=== PATIENT | male | born 1955 | race Caucasian/White ===

== ENCOUNTER → 2018-11-04 | Outpatient (CLI) | payer MEDICARE, MEDICAID, SELFPAY ==
--- NOTE | 2018-11-04 17:01 | CT_ITS ---
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 A radiation dose optimization technique was used for this scan. IV Contrast dosage and agent: 100ML Isovue 370 Oral contrast: Oral contrast was administered. COMPARISON: No prior imaging of the abdomen or pelvis is available for comparison. FINDINGS: LYMPH NODES, MESENTERY: 3.0 x 3.5 x 3.4 cm TRV X APX craniocaudad stellate soft tissue density mass in the right posterior mid abdominal mesentery, just inferior to the transverse duodenum and pancreatic head, encasing the proximal right ureter, difficult to separate from the inferior wall of the duodenum, and inseparable from the anterior right wall of the IVC, with adjacent cicatrization and subcentimeter adjacent nodules. No other enlarged mesenteric or retroperitoneal lymph nodes. LOWER CHEST: No acute or concerning findings lung bases. Mild emphysema. Calcified granulomas left lung base. LIVER: 4.3 x 4.2 x 4.4 cm TRV X APX craniocaudad mass in the inferior, posterior tip of the right lobe of the liver, slightly hypodense to hepatic parenchyma with a more focal hypodense region centrally and anteriorly which measures 1.9 cm diameter. No other suspicious hepatic lesions are evident. GALLBLADDER AND BILIARY TREE: Status post cholecystectomy. No intra- or extrahepatic biliary ductal dilation. KIDNEYS AND URETERS: Moderate right hydronephrosis. Mild right renal cortical thinning. Right ureteral stent in place. Proximal right ureter encased by the mesenteric mass. 6 mm nonobstructing stone posterior calyx lower pole left kidney. 1 cm diameter hyperdense lesion off the lower pole of the left kidney, mildly increases in density after contrast administration. Left ureter are unremarkable. ADRENAL GLANDS: Non-enlarged. SPLEEN: Normal size, no mass. Incidental calcified granuloma. PANCREAS: No pancreatic inflammation or mass. BOWEL: Appendix not identified; no evidence of apendicitis.. No obstruction or inflammation of the bowel. Probable duodenal wall invasion by the mesenteric mass. PERITONEUM: No ascites or free air. No other fluid collection. VESSELS: No abdominal aortic aneurysm. The mesenteric tumor may partially invade the right anterior aspect of the infrarenal IVC. URINARY BLADDER: Unremarkable. REPRODUCTIVE ORGANS: No pelvic masses.Prostate normal size. ABDOMINAL WALL: No concerning findings. BONES: No acute osseous abnormality. CT/CT Abd/Pelvis W/WO Contrast IMPRESSION: Mesenteric mass 3.5 cm in greatest dimension, encasing the proximal right ureter and probably invading the posterior wall of the transverse duodenum and right anterior wall of the infrarenal IVC. Compatible with neuroendocrine tumor. Small likely metastatic nodules in the immediately adjacent mesentery. 4.4 cm in greatest dimension mass in the right lobe of the liver suspicious for metastases. No other metastatic disease is evident. Moderate right hydronephrosis but with ureteral stent in place. Comparison with priors would be helpful. Individualized dose optimization techniques were used for this CT. at 0954 Reported and signed by: Skyler Israel MD Electronically Signed: Skyler Israel, at 22:43 EDT Tel , Service support ,
== END | disposition home or self-care (01) ==
PROVIDERS: Family Provider Internal Medicine; PCP Internal Medicine
DX: C7A.8 Other malignant neuroendocrine tumors (principal)
CPT/HCPCS: 74178; Q9967

== ENCOUNTER → 2019-03-11 | Outpatient (CLI) | payer MEDICARE, SELFPAY ==
--- NOTE | 2019-03-11 08:02 | CT_ITS ---
STUDY: CT ABDOMEN AND PELVIS WITH AND WITHOUT CONTRAST REASON FOR EXAM: Male, 63 years old. Restaging of colon cancer. History of colon cancer and resection with chemotherapy and radiation. Right ureteral stent. RADIATION DOSAGE (If Supplied By Facility): CTDIvol = ( 27.32 ) mGy, DLP = ( 3400.71 ) mGycm TECHNIQUE: Transaxial images were obtained from the dome of the diaphragm to the symphysis pubis with oral contrast. IV/Oral Isovue 300 100ML was administered. Sagittal and coronal images were reconstructed. Individualized dose optimization techniques were used for this CT. COMPARISON: Comparison is made with prior study dated November 04, 2018. FINDINGS: Stable calcified granuloma in the posterior medial segment of the left lower lobe. Emphysematous changes seen at the lung bases. The visualized portions of the heart are within normal limits. There is a 1.5 cm well-defined hypodensity in the right lobe of the liver adjacent to the gallbladder fossa. A metastatic deposit should be ruled out. This has decreased in size as compared to prior study. There are surgical clips in the gallbladder fossa consistent with a prior cholecystectomy. Normal spleen. Normal pancreas. Normal bilateral adrenal glands. A right-sided double-J stent catheter is seen. 4.5 mm calculus in the posterior midpole calyx of the left kidney. Normal visualized stomach. Normal small intestine. The patient is status post right hemicolectomy. The appendix is visualized and appears normal. There is diffuse atherosclerotic calcification of the abdominal aorta, without a demonstrated aneurysm. Normal inferior vena cava. The previously seen stellate mass lesion in the right side of the abdomen at the level of the anterior aspect of the right ureter is unchanged. This measures 3.2 sides by 3.4 cm. Normal urinary bladder. Normal abdominal wall. There are degenerative changes of the visualized lumbar spine. CT/CT Abd/Pelvis W/WO Contrast IMPRESSION: Stable mesenteric mass in the right side of the abdomen adjacent to the right ureter. Interval decrease in size of the metastatic deposit within the right lobe of the liver. Status post right double J stent placement. Electronically Signed: Paco Stewart, at 15:07 EST , Service support ,
[2019-03-12 07:12] LABS: CREATININE FINGERSTICK 1.06 mg/dL (0.70-1.30)
== END | disposition home or self-care (01) ==
LOC: CT 07:59
PROVIDERS: Family Provider Internal Medicine; PCP Internal Medicine
DX: Z85.038 Personal history of other malignant neoplasm of large intestine (principal)
CPT/HCPCS: 74178; Q9967; A4216

== ENCOUNTER → 2019-10-08 08:06 | Outpatient (CLI) | payer MEDICARE, SELFPAY ==
--- NOTE | 2019-10-08 08:12 | CT_ITS ---
STUDY: CT ABDOMEN AND PELVIS WITH AND WITHOUT CONTRAST REASON FOR EXAM: Male, 63 years old. 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 STENT IN RIGHT URETER DUE TO CANCER RADIATION DOSAGE (If Supplied By Facility): CTDIvol = ( 24.03 ) mGy, DLP = ( 4166.03 ) mGycm TECHNIQUE: Transaxial images were obtained from the dome of the diaphragm to the symphysis pubis with oral contrast. Oral and IV Readi-CAT and 100mL Isovue-300 was administered. Sagittal and coronal images were reconstructed. Individualized dose optimization techniques were used for this CT. COMPARISON: Comparison is made with prior study dated March 11, 2019. FINDINGS: Stable calcified granuloma in the left lower lobe. Emphysematous changes are once again seen at the lung bases. Coronary artery calcification. Stable 1.5 cm rounded hypodensity in the right lobe of the liver in the region of the gallbladder fossa. There are surgical clips in the gallbladder fossa consistent with a prior cholecystectomy. Normal spleen. Normal pancreas. Normal bilateral adrenal glands. Once again, a right-sided double-J stent catheter seen. Mild residual right hydronephrosis. Stable appearance of a stellate soft tissue mass in the right mid abdomen just distal to the right kidney. This surrounds the ureteral stent. This measures 3.2 cm x 2.6 cm. Normal left kidney. Normal visualized stomach. Normal small intestine. The patient is status post right hemicolectomy. The appendix is visualized and appears normal. There is diffuse atherosclerotic calcification of the abdominal aorta, without a demonstrated aneurysm. Normal inferior vena cava. Normal retroperitoneum. Normal urinary bladder. Normal abdominal wall. There are diffuse degenerative changes of the visualized lumbar spine. CT/CT Abd/Pelvis W/WO Contrast IMPRESSION: Stable examination. Electronically Signed: Paco Stewart, at 11:14 EDT , Service support ,
--- NOTE | 2019-10-08 08:13 | CT_ITS ---
STUDY: CT CHEST WITH CONTRAST REASON FOR EXAM: Male, 63 years old. 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 STENT IN RIGHT URETER DUE TO CANCER RADIATION DOSAGE (If Supplied By Facility): CTDIvol = ( 24.03 ) mGy, DLP = ( 4166.03 ) mGycm TECHNIQUE: Transaxial imaging was performed following intravenous administration of Oral and amp; IV Readi-CAT and amp; 100mL Isovue-300. Multiplanar coronal and sagittal images were reformatted. Individualized dose optimization techniques were used for this CT. COMPARISON: Comparison is made with prior examination dated December 12, 2016. FINDINGS: Small benign-appearing bilateral axillary lymph nodes. Hyperinflation. Diffuse emphysematous changes with bullous changes worse in the upper lobes more so on the right side. There is no demonstrated pleural abnormality. There are calcifications of the coronary arteries. There are multiple small lymph nodes within the mediastinum, which are normal in size and morphology most compatible with reactive lymph hyperplasia. Normal hilar regions. Normal enhanced pulmonary arteries. Normal aorta arch and descending thoracic aorta. There is demineralization of the thoracic spine. Loss of height of mid dorsal vertebrae. There is no demonstrated abnormality of the visualized upper abdomen. CT/Chest WITH Contrast IMPRESSION: Hyperinflation with emphysematous changes. No acute abnormality is seen. Electronically Signed: Paco Stewart, at 9:48 EDT , Service support ,
[2019-10-11 07:12] LABS: CREATININE FINGERSTICK 0.69 mg/dL (0.70-1.30); EGFR FINGERSTICK > 60 mL/min (>60)
== END ==
PROVIDERS: PCP Internal Medicine
DX: C78.7 Secondary malignant neoplasm of liver and intrahepatic bile duct (principal); E21.3 Hyperparathyroidism, unspecified; D35.2 Benign neoplasm of pituitary gland; C7A.8 Other malignant neuroendocrine tumors
CPT/HCPCS: 71260; 74178; Q9967

== ENCOUNTER → 2020-12-15 07:17 | Outpatient (CLI) | payer MEDICARE, SELFPAY ==
--- NOTE | 2020-12-15 07:27 | CT_ITS ---
STUDY: CT ABDOMEN AND PELVIS WITH AND WITHOUT CONTRAST REASON FOR EXAM: Male, 64 years old. LIVER METASTASES. History of neuroendocrine cancer and colon cancer. RADIATION DOSAGE (If Supplied By Facility): CTDIvol = ( 26.52 ) mGy, DLP = ( 4031.69 ) mGycm TECHNIQUE: Transaxial images were obtained from the dome of the diaphragm to the symphysis pubis with oral contrast. Oral and amp; IV Readi-CAT and amp; 100mL Isovue-300 was administered. Sagittal and coronal images were reconstructed. Individualized dose optimization techniques were used for this CT. COMPARISON: Comparison is made with prior study dated 10/08/2019. FINDINGS: Calcified granuloma in the left lower lung. The visualized portions of the heart are within normal limits. There is a 4.1 cm x 3.3 cm hypodense nodule in the medial aspect of the right lobe of the liver adjacent to the gallbladder fossa. A metastatic deposit should be ruled out. There are surgical clips in the gallbladder fossa consistent with a prior cholecystectomy. Normal spleen. Normal pancreas. Normal bilateral adrenal glands. There is mild cortical atrophy of the right kidney, consistent with chronic medical renal disease. A right-sided double-J stent catheter is seen. Mild degree of right hydronephrosis and right hydroureter. Normal left kidney. Normal visualized stomach. There is a 3.5 cm x 4.3 cm x 5.4 cm spiculated mass in the mesentery in the right lower quadrant. Surgical clips are seen at that site. There has been partial resection of the cecum. The appendix is visualized and appears normal. There is diffuse atherosclerotic calcification of the abdominal aorta, without a demonstrated aneurysm. Normal inferior vena cava. Normal retroperitoneum. Normal urinary bladder. 1.7 cm lipoma in the anterior muscle group of the proximal right thigh. There are diffuse degenerative changes of the visualized lumbar spine. CT/CT Abd/Pelvis W/WO Contrast IMPRESSION: New 4.1 cm x 3.3 cm hypodense nodule in the medial aspect of right lower lobe adjacent to the gallbladder fossa. A metastatic deposit should be ruled out. Right-sided double-J stent catheter with the proximal tip in the right renal pelvis and distal tip in the urinary bladder. Stable stellate soft tissue mass in the mesenteric fat in the right lower quadrant adjacent to the distal ileum and cecum. There has been partial resection of the cecum. Electronically Signed: Paco Stewart MD at 11:37 EDT , Service support ,
[2020-12-15 08:51] LABS: CREATININE FINGERSTICK 0.95 mg/dL (0.70-1.30); EGFR FINGERSTICK > 60 mL/min (>60)
== END ==
DX: C7A.8 Other malignant neuroendocrine tumors (principal)
CPT/HCPCS: 74178

== ENCOUNTER → 2022-08-08 | Outpatient (CLI) | payer MEDICARE, SELFPAY ==
[2022-08-08 09:45] VITALS: PULSE 125; RESP 20; TEMP 36.4; O2SAT 95; BMI 32.3
== END | disposition home or self-care (01) ==
PROVIDERS: Referring Provider Internal Medicine; Visit Provider Internal Medicine
DX: C7A.8 Other malignant neuroendocrine tumors (principal)
CPT/HCPCS: 96372; 96402; J2353